=== PATIENT | female | born 1985 | race Caucasian/White ===

== ENCOUNTER 2021-04-06 23:25 | Emergency (ER) | payer OTHER ==
[~2021-04-06] VITALS: Ht 162.6 cm; Wt 137.7 kg
[2021-04-06] MEDS ORDERED: EFFE75CA2 PO (23:46)
[2021-04-06] MEDS ORDERED: TOPA100T12 PO (23:47)
[2021-04-06] MEDS ORDERED: FERR325T3 PO (23:47)
[2021-04-06] MEDS ORDERED: FLON1SPR NARES (23:47)
[2021-04-07] MEDS ORDERED: IBUPROFEN 600MG TAB PO ONE (08:30)
[2021-04-07] MEDS ORDERED: IBUP80TA PO (08:35)
[2021-04-07 08:37] VITALS: BP 135/81
== END 2021-04-07 08:41 | disposition home or self-care (01) ==
LOC: M ED 23:25
DX: D16.21 Benign neoplasm of long bones of right lower limb (principal); Z88.1 Allergy status to other antibiotic agents; Z91.013 Allergy to seafood

== ENCOUNTER 2021-10-04 02:39 | Emergency (ER) | payer OTHER ==
[~2021-10-04] VITALS: Ht 162.6 cm; Wt 136.6 kg
[~2021-10-04 02:39] MED LIST: EFFE75CA2 PO; FERR325T3 PO; FLON1SPR NARES; IBUP80TA PO; TOPA100T12 PO
[2021-10-04] MEDS ORDERED: TOPI50TA9 (02:50)
[2021-10-04] MEDS ORDERED: NITR100C2 (02:50)
[2021-10-04] MEDS ORDERED: LORA-674 (02:50)
[2021-10-04] MEDS ORDERED: PANT40TA29 (02:51)
[2021-10-04] MEDS ORDERED: KETOROLAC 30 MG/ML 1ML VIAL IV ONE (04:45)
[2021-10-04] MEDS ORDERED: NS 1,000 ML IV ONE (04:45)
[2021-10-04 04:46] LABS: BASO # 0.1 10^3/uL (0.0-0.2); BASO % 0.5 % (0.0-1.0); EOS # 0.2 10^3/uL (0.0-0.5); EOS % 1.3 % (0.0-3.0); HEMATOCRIT 49.5 % (36.0-47.0); HEMOGLOBIN 16.1 g/dl (12.0-15.5); LYMPH # 1.9 10^3/uL (1.5-5.0); LYMPH % 16.1 % (24.0-44.0); MEAN CORPUSCULAR HGB CONC 32.5 g/dl (32.0-36.5); MEAN CORPUSCULAR VOLUME 92.4 fl (80.0-96.0); MONO # 0.8 10^3/uL (0.0-0.8); MONO % 7.1 % (2.0-8.0); NEUTROPHILS # 8.8 10^3/uL (1.5-8.5); NEUTROPHILS % 74.3 % (36.0-66.0); PLATELET COUNT, AUTOMATED 327 10^3/uL (150-450); RED BLOOD COUNT 5.36 10^6/uL (4.00-5.40); WHITE BLOOD COUNT 11.9 10^3/uL (4.0-10.0)
[2021-10-04 05:20] LABS: ALBUMIN 4.6 GM/DL (3.2-5.2); ALT/SGPT 37 U/L (12-78); BILIRUBIN,TOTAL 0.3 MG/DL (0.2-1.0); BLOOD UREA NITROGEN 19 MG/DL (7-18); CALCIUM LEVEL 8.9 MG/DL (8.5-10.1); CARBON DIOXIDE LEVEL 21 MEQ/L (21-32); CHLORIDE LEVEL 112 MEQ/L (98-107); CREATININE FOR GFR 0.83 MG/DL (0.55-1.30); GLOMERULAR FILTRATION RATE > 60.0 (>60); GLUCOSE, FASTING 97 MG/DL (70-100); POTASSIUM SERUM 5.2 MEQ/L (3.5-5.1); SODIUM LEVEL 140 MEQ/L (136-145); TOTAL PROTEIN 7.9 GM/DL (6.4-8.2)
[2021-10-04] MEDS ORDERED: MORPHINE 4 MG/ML 1ML VIAL/SYRINGE (J2270) IV ONE (06:00)
[2021-10-04] MEDS ORDERED: KETO10TAB PO (08:09)
[2021-10-04] MEDS ORDERED: BACT800T5 PO (08:09)
[2021-10-04] MEDS ORDERED: ONDA4TAB6 PO (08:09)
[2021-10-04] MEDS ORDERED: cefTRIAXone SOD 1 GM in D5W MINI-BAG PLUS 50 ML IV ONE (08:10)
[2021-10-04 09:02] VITALS: BP 115/73
== END 2021-10-04 09:21 | disposition home or self-care (01) ==
LOC: M ED 02:39
DX: N39.0 Urinary tract infection, site not specified (principal); N20.2 Calculus of kidney with calculus of ureter; R10.84 Generalized abdominal pain; G43.909 Migraine, unspecified, not intractable, without status migrainosus; K21.9 Gastro-esophageal reflux disease without esophagitis; D64.9 Anemia, unspecified; Z98.84 Bariatric surgery status; Z79.899 Other long term (current) drug therapy
CPT/HCPCS: 74176; 80053; 81001; 83605; 85025; 87088; 87186; 96361; 96365; 96375; 99284; J0696; J1885; J2270

== ENCOUNTER → 2022-01-13 | Outpatient (CLI) | payer OTHER ==
[~2022-01-13] MED LIST changes: +BACT800T5 PO; +KETO10TAB PO; +LORA-674; +NITR100C2; +ONDA4TAB6 PO; +PANT40TA29; +TOPI50TA9
[2022-01-13 15:25] LABS: APPEARANCE, URINE CLEAR (CLEAR); BACTERIA, URINE AUTO 1+ (NEGATIVE); BILIRUBIN, URINE AUTO NEGATIVE (NEGATIVE); BLOOD, URINE BLOOD NEGATIVE (NEGATIVE); COLOR, URINE YELLOW (YELLOW); GLUCOSE, URINE (UA) AUTO NEGATIVE (NEGATIVE); KETONE, URINE AUTO NEGATIVE (NEGATIVE); LEUKOCYTE ESTERASE, URINE AUTO NEGATIVE (NEGATIVE); NITRITE, URINE AUTO NEGATIVE (NEGATIVE); PROTEIN, URINE AUTO NEGATIVE (NEGATIVE); RBC, URINE AUTO 0 /HPF (0-3); SPECIFIC GRAVITY URINE AUTO 1.006 (1.002-1.035); SQUAMOUS EPITHELIAL CELL UR AU 2 /HPF (0-6); UROBILINOGEN, URINE AUTO 0.2 mg/dL (0.0-2.0); WBC, URINE AUTO 0 /HPF (0-3)
[2022-01-13 17:43] LABS: GC DNA AMPLIFICATION NEGATIVE (NEGATIVE)
== END ==
LOC: M LAB 14:28
PROVIDERS: ATTEND Physician Assistant
DX: R31.9 Hematuria, unspecified (principal)

== ENCOUNTER 2022-07-29 09:56 | Emergency (ER) | payer OTHER ==
[~2022-07-29] VITALS: Ht 162.6 cm; Wt 117.3 kg
[2022-07-29] MEDS ORDERED: HYDR-3363 (10:10)
[2022-07-29 13:13] LABS: BASO # 0.1 10^3/uL (0.0-0.2); BASO % 0.7 % (0.0-1.0); EOS # 0.3 10^3/uL (0.0-0.5); EOS % 2.6 % (0.0-3.0); HEMATOCRIT 48.7 % (36.0-47.0); HEMOGLOBIN 16.2 g/dl (12.0-15.5); LYMPH # 2.7 10^3/uL (1.5-5.0); LYMPH % 24.5 % (24.0-44.0); MEAN CORPUSCULAR HEMOGLOBIN 31.6 pg (27.0-33.0); MEAN CORPUSCULAR HGB CONC 33.3 g/dl (32.0-36.5); MEAN CORPUSCULAR VOLUME 94.9 fl (80.0-96.0); MONO # 0.9 10^3/uL (0.0-0.8); MONO % 7.7 % (2.0-8.0); NEUTROPHILS % 63.2 % (36.0-66.0); PLATELET COUNT, AUTOMATED 333 10^3/uL (150-450); RED BLOOD COUNT 5.13 10^6/uL (4.00-5.40); WHITE BLOOD COUNT 11.1 10^3/uL (4.0-10.0)
[2022-07-29 13:34] LABS: LIPASE 29 U/L (12-53)
[2022-07-29 13:35] LABS: BILIRUBIN,DIRECT 0.2 MG/DL (<0.4)
[2022-07-29 13:36] LABS: ALKALINE PHOSPHATASE 85 U/L (46-116); ALT/SGPT 21 U/L (7.0-40); AST/SGOT 19 U/L (<34); BILIRUBIN,TOTAL 0.5 MG/DL (0.3-1.2); BLOOD UREA NITROGEN 10 MG/DL (9-23); CALCIUM LEVEL 9.3 MG/DL (8.5-10.1); CARBON DIOXIDE LEVEL 24 MMOL/L (20-31); CHLORIDE LEVEL 107 MMOL/L (98-107); CREATININE FOR GFR 0.79 MG/DL (0.55-1.30); GLOMERULAR FILTRATION RATE > 60.0 (>60); GLUCOSE, FASTING 101 MG/DL (60-100); POTASSIUM SERUM 4.8 MMOL/L (3.5-5.1); SODIUM LEVEL 138 MMOL/L (136-145); TOTAL PROTEIN 6.6 G/DL (5.7-8.2)
[2022-07-29 13:50] LABS: HCG, SERUM QUALITATIVE NEGATIVE (NEGATIVE)
[2022-07-29] MEDS ORDERED: PANTOPRAZOLE 40MG VIAL IV ONE (14:50)
[2022-07-29] MEDS ORDERED: ONDANSETRON 4MG 2ML VIAL IV ONE (14:50)
[2022-07-29] MEDS ORDERED: NS 1,000 ML IV ONE (14:50)
[2022-07-29] MEDS ORDERED: MORPHINE 4 MG/ML 1ML VIAL IV ONE (14:50)
[2022-07-29] MEDS: GASTROGRAFIN SOLUTION 30ML PO SCH ×2 (16:14→16:54)
[2022-07-29] MEDS ORDERED: ISOVUE-370 76% 100ML VIAL As Ordered ONE (16:56)
[2022-07-29 16:58] LABS: RSV AMPLIFICATION NEGATIVE (NEGATIVE)
[2022-07-29] MEDS ORDERED: CARA1TAB6 PO (18:29)
[2022-07-29 18:34] VITALS: BP 118/83
== END 2022-07-29 18:56 | disposition home or self-care (01) ==
LOC: M ED 09:56
DX: R10.9 Unspecified abdominal pain (principal); R11.2 Nausea with vomiting, unspecified; D64.9 Anemia, unspecified; F32.A Depression, unspecified; F41.9 Anxiety disorder, unspecified; G43.909 Migraine, unspecified, not intractable, without status migrainosus; K21.9 Gastro-esophageal reflux disease without esophagitis; F12.10 Cannabis abuse, uncomplicated; F10.10 Alcohol abuse, uncomplicated; F17.200 Nicotine dependence, unspecified, uncomplicated; Z87.442 Personal history of urinary calculi; Z88.1 Allergy status to other antibiotic agents; Z91.013 Allergy to seafood; Z91.018 Allergy to other foods; Z98.84 Bariatric surgery status; Z79.811 Long term (current) use of aromatase inhibitors; Z79.899 Other long term (current) drug therapy
CPT/HCPCS: 74177; 76705; 80048; 80076; 83690; 84703; 85025; 87631; 96361; 96374; 99284; C9113; J2405

== ENCOUNTER 2023-04-26 21:31 | Emergency (ER) | payer OTHER ==
[~2023-04-26] VITALS: Ht 162.6 cm; Wt 94.2 kg
[~2023-04-26 21:31] MED LIST changes: +CARA1TAB6 PO; +HYDR-3363; +LORA-1041; -LORA-674; +TOPI-254; -TOPI50TA9
[2023-04-26 21:33] VITALS: BP 123/83; TEMP 97.5; O2SAT 98
[2023-04-26] MEDS ORDERED: OMEP40CA4 PO (21:40)
[2023-04-26] MEDS ORDERED: IMIT50TA PO (21:40)
== END 2023-04-27 00:39 | disposition left against medical advice (07) ==
LOC: M ED 21:31
DX: Z53.21 Procedure and treatment not carried out due to patient leaving prior to being seen by health care provider (principal)

== ENCOUNTER 2023-10-01 23:36 | Emergency (ER) | payer OTHER ==
[~2023-10-01] VITALS: Ht 170.2 cm; Wt 88.6 kg
[~2023-10-01 23:36] MED LIST changes: +IMIT50TA PO; +OMEP40CA4 PO; +TOPI-21; -TOPI-254
[2023-10-01 23:52] VITALS: TEMP 98.1
[2023-10-02] MEDS: NS 1,000 ML IV ONE (02:46)
[2023-10-02] MEDS: SUMAtriptan SUCCINATE 6MG/0.5ML VIAL SC ONE (02:47)
[2023-10-02] MEDS: MAG SULF 1GM/100ML (MAG RUN) 1 GM in IV 1 EA IV ONE (02:50)
[2023-10-02] MEDS: KETOROLAC 30 MG/ML 1ML VIAL IM ONE (02:50)
[2023-10-02] MEDS: METOCLOPRAMIDE INJ 10MG/2ML VIAL IV ONE (02:52)
[2023-10-02 04:45] VITALS: BP 96/55
[2023-10-02 04:51] VITALS: O2SAT 95
[2023-10-02] MEDS ORDERED: IMIT50TA PO (05:19)
== END 2023-10-02 06:15 | disposition home or self-care (01) ==
LOC: M ED 23:36 → EDBD 23:36 → M ED 10-02 06:15
DX: G43.909 Migraine, unspecified, not intractable, without status migrainosus (principal); K21.9 Gastro-esophageal reflux disease without esophagitis; F32.A Depression, unspecified; F41.9 Anxiety disorder, unspecified; F17.200 Nicotine dependence, unspecified, uncomplicated; Z98.84 Bariatric surgery status; Z88.0 Allergy status to penicillin; Z88.1 Allergy status to other antibiotic agents; Z88.8 Allergy status to other drugs, medicaments and biological substances; Z91.013 Allergy to seafood; Z91.02 Food additives allergy status; Z79.83 Long term (current) use of bisphosphonates; Z79.2 Long term (current) use of antibiotics; Z79.1 Long term (current) use of non-steroidal anti-inflammatories (NSAID); Z79.899 Other long term (current) drug therapy
CPT/HCPCS: 96372; 96374; 96375; 99284; J1100; J1885; J2765; J3030; J3475

== ENCOUNTER 2024-04-06 08:41 | Day surgery (SDC) | payer OTHER ==
[~2024-04-06] VITALS: Ht 162.6 cm; Wt 76.8 kg
[~2024-04-06 08:41] MED LIST changes: +AJOV225I SC; +ERGO500029 PO; -HYDR-3363; +HYDR-3363 PO; -LORA-1041; +LORA-1041 PO; +MONT10TA97 PO; +ONDA-282 PO; -ONDA4TAB6 PO; -PANT40TA29; +PANT40TA29 PO; +SUMA50TA2 PO; +TOPI100T9 PO; +VENL37.598 PO
[2024-04-06] MEDS: NS 1,000 ML IV ONE (09:33)
[2024-04-06] MEDS ORDERED: ACET-897 PO (09:36)
[2024-04-06] MEDS ORDERED: fentaNYL 100 MCG/2 ML INJECTION As Ordered ONE (10:20)
[2024-04-06] MEDS ORDERED: propofoL 200 MG/20 ML VIAL As Ordered ONE (10:20)
[2024-04-06] MEDS ORDERED: LIDOCAINE 2% 100MG/5ML SDV (FOR ANES.) As Ordered ONE (10:20)
[2024-04-06 11:38] VITALS: TEMP 98.5
[2024-04-06 11:56] VITALS: BP 128/78; O2SAT 100
== END 2024-04-06 12:04 | disposition home or self-care (01) ==
LOC: M OPP 08:41
PROVIDERS: ATTEND Internal Medicine Gastroenterology
DX: K64.8 Other hemorrhoids (principal); R12 Heartburn; D12.2 Benign neoplasm of ascending colon; D12.0 Benign neoplasm of cecum; D12.5 Benign neoplasm of sigmoid colon; D12.4 Benign neoplasm of descending colon; K58.1 Irritable bowel syndrome with constipation; Q43.8 Other specified congenital malformations of intestine; Z98.0 Intestinal bypass and anastomosis status; F17.290 Nicotine dependence, other tobacco product, uncomplicated; D64.9 Anemia, unspecified; F41.9 Anxiety disorder, unspecified; F43.10 Post-traumatic stress disorder, unspecified; G47.33 Obstructive sleep apnea (adult) (pediatric); Z88.1 Allergy status to other antibiotic agents; Z88.8 Allergy status to other drugs, medicaments and biological substances; Z91.040 Latex allergy status; Z91.013 Allergy to seafood; Z79.899 Other long term (current) drug therapy
CPT/HCPCS: 43235; 45385; 88305; J3010

== ENCOUNTER 2024-04-07 16:17 | Emergency (ER) | payer OTHER ==
[~2024-04-07] VITALS: Ht 162.6 cm; Wt 78.2 kg
[~2024-04-07 16:17] MED LIST changes: +ACET-897 PO
[2024-04-07 17:13] LABS: BASO # 0.1 10^3/uL (0.0-0.2); BASO % 0.6 % (0.0-1.0); EOS # 0.1 10^3/uL (0.0-0.5); EOS % 0.6 % (0.0-3.0); HEMATOCRIT 43.8 % (36.0-47.0); HEMOGLOBIN 15.1 g/dl (12.0-15.5); LYMPH # 2.7 10^3/uL (1.5-5.0); LYMPH % 26.2 % (24.0-44.0); MEAN CORPUSCULAR HEMOGLOBIN 31.9 pg (27.0-33.0); MEAN CORPUSCULAR HGB CONC 34.5 g/dl (32.0-36.5); MEAN CORPUSCULAR VOLUME 92.6 fl (80.0-96.0); MONO # 0.7 10^3/uL (0.0-0.8); NEUTROPHILS # 6.6 10^3/uL (1.5-8.5); NEUTROPHILS % 65.2 % (36.0-66.0); PLATELET COUNT, AUTOMATED 275 10^3/uL (150-450); RED BLOOD COUNT 4.73 10^6/uL (4.00-5.40); WHITE BLOOD COUNT 10.1 10^3/uL (4.0-10.0)
[2024-04-07 17:26] LABS: CK-MB VALUE MASS < 1.0 NG/ML (<3.6)
[2024-04-07 17:28] LABS: ALBUMIN 3.8 G/DL (3.2-5.2); ALKALINE PHOSPHATASE 63 U/L (46-116); ALT/SGPT 16 U/L (7.0-40); AST/SGOT 9 U/L (<34); BILIRUBIN,DIRECT 0.2 MG/DL (<0.4); BILIRUBIN,TOTAL 0.5 MG/DL (0.3-1.2); CPK CREATINE PHOSPHOKINASE 54 U/L (34-145); MB/CK RELATIVE INDEX 1.85 (< OR =4); TOTAL PROTEIN 6.3 G/DL (5.7-8.2)
[2024-04-07 17:30] LABS: HCG, SERUM QUALITATIVE NEGATIVE (NEGATIVE)
[2024-04-07] MEDS: NS 1,000 ML IV ONE (18:18)
[2024-04-07] MEDS: METOCLOPRAMIDE INJ 10MG/2ML VIAL IV ONE (18:18)
[2024-04-07 18:28] LABS: BLOOD UREA NITROGEN 12 MG/DL (9-23); CARBON DIOXIDE LEVEL 21 MMOL/L (20-31); CHLORIDE LEVEL 108 MMOL/L (98-107); CREATININE FOR GFR 0.74 MG/DL (0.55-1.30); GLOMERULAR FILTRATION RATE > 60.0 (>58); GLUCOSE, FASTING 102 MG/DL (60-100); POTASSIUM SERUM 4.3 MMOL/L (3.5-5.1); SODIUM LEVEL 135 MMOL/L (136-145)
[2024-04-07 19:48] VITALS: BP 124/67; TEMP 97.8; O2SAT 100
[2024-04-07] MEDS: KETOROLAC 30 MG/ML 1ML VIAL IV ONE (19:51)
== END 2024-04-07 22:00 | disposition home or self-care (01) ==
LOC: M ED 16:17
DX: G43.909 Migraine, unspecified, not intractable, without status migrainosus (principal); E86.0 Dehydration; R42 Dizziness and giddiness; Z98.84 Bariatric surgery status; Z88.1 Allergy status to other antibiotic agents; Z91.040 Latex allergy status; Z91.013 Allergy to seafood; Z91.048 Other nonmedicinal substance allergy status; Z88.8 Allergy status to other drugs, medicaments and biological substances; Z79.899 Other long term (current) drug therapy
CPT/HCPCS: 36415; 80047; 80053; 80076; 81001; 82550; 82553; 83735; 84484; 84703; 85025; 87086; 93005; 96361; 96374; 96375; 99284; J1885; J2765

== ENCOUNTER → 2024-05-01 | Outpatient (REF) | LOC: M PLAIMG 11:12 | PROVIDERS: ATTEND Internal Medicine | DX: R52 Pain, unspecified (principal) ==

== ENCOUNTER → 2025-02-13 | Outpatient (REF) | payer OTHER ==
[~2025-02-13] MED LIST changes: +TOPI-257 PO; -TOPI100T9 PO
== END ==
LOC: M PLALAB 13:01
PROVIDERS: ATTEND Specialist
DX: R87.612 Low grade squamous intraepithelial lesion on cytologic smear of cervix (LGSIL) (principal)

== ENCOUNTER → 2025-03-15 | Outpatient (CLI) | payer OTHER | LOC: M WHC 08:35 | PROVIDERS: ATTEND Specialist | DX: R92.8 Other abnormal and inconclusive findings on diagnostic imaging of breast (principal) ==

== ENCOUNTER → 2025-04-04 | Outpatient (CLI) | payer OTHER | LOC: M WHC 14:15 | PROVIDERS: ATTEND Physician Assistant | DX: M16.11 Unilateral primary osteoarthritis, right hip (principal); M25.551 Pain in right hip; M25.541 Pain in joints of right hand ==